=== PATIENT | male | born 1960 | race Caucasian/White ===

== ENCOUNTER 2017-08-31 16:11 | Emergency (ER) | payer OTHER ==
[~2017-08-31] VITALS: Ht 193 cm; Wt 122.5 kg
[~2017-08-31 16:11] MED LIST: Ativan1 MG PO; CEPH500 PO; CODACE30 PO; CYCL10 PO; DOXE2.5 PO; FLUO20 PO; FURO40 PO; HYDACE5; HYDACE5 PO; KETO10 PO; LISI20 PO; NEOPOLHCSU OT; PENVK500 PO; POTCHL20ER PO; Stool Softener100 MG PO; TRAM50 PO; WARF5; WARF5 PO; WARF6; WARF7.5 PO; [UNRECOGNIZED DRUG - REMARK]
[2017-08-31] MEDS ORDERED: ALBU90OI INH (16:49)
[2017-08-31] MEDS ORDERED: Cheratussin AC118 ML PO (16:49)
[2018-04-07] MEDS ORDERED: CYCL10 PO (06:46)
[2018-04-07] MEDS ORDERED: POLYETHYLENE G255 GM (06:46)
[2018-04-07] MEDS ORDERED: Ciloxan5 ML LEFTEAR (06:59)
[2018-04-26] MEDS ORDERED: Norco 5-325 Ta1 EACH PO (06:42)
[2018-04-26] MEDS ORDERED: Prednisone20 MG PO (06:42)
== END 2017-08-31 17:00 | disposition home or self-care (01) ==
LOC: ER 16:11
DX: J40 Bronchitis, not specified as acute or chronic (principal); N18.9 Chronic kidney disease, unspecified; G47.33 Obstructive sleep apnea (adult) (pediatric); F17.210 Nicotine dependence, cigarettes, uncomplicated; Z79.01 Long term (current) use of anticoagulants; Z79.899 Other long term (current) drug therapy
CPT/HCPCS: 99282

== ENCOUNTER 2019-04-30 07:30 | Day surgery (SDC) | payer OTHER ==
[~2019-04-30] VITALS: Ht 193 cm; Wt 112.0 kg
[~2019-04-30 07:30] MED LIST changes: +ALBU90OI INH; +Cheratussin AC118 ML PO; +Ciloxan5 ML LEFTEAR; +DOCU100 PO; +Norco 5-325 Ta1 EACH PO; +POLYETHYLENE G255 GM; +Prednisone20 MG PO; +XARELTO10 MG PO
== END 2019-04-30 09:36 | disposition home or self-care (01) ==
LOC: ORSCSDS 07:30
PROVIDERS: Surgery
PROC: 0DBK8ZX Excision of Ascending Colon, Via Natural or Artificial Opening Endoscopic, Diagnostic (ICD-10-PCS; principal; 2019-04-30 09:15)
DX: Z12.11 Encounter for screening for malignant neoplasm of colon (principal); Z86.010 Personal history of colon polyps; D12.2 Benign neoplasm of ascending colon; G47.33 Obstructive sleep apnea (adult) (pediatric); E66.9 Obesity, unspecified; Z68.32 Body mass index [BMI] 32.0-32.9, adult; Z87.891 Personal history of nicotine dependence; Z79.01 Long term (current) use of anticoagulants; Z79.899 Other long term (current) drug therapy
CPT/HCPCS: 88305; J2704; J7120

== ENCOUNTER 2019-06-06 08:17 | Emergency (ER) | payer OTHER ==
[~2019-06-06] VITALS: Ht 193 cm; Wt 112.0 kg
[2019-06-06 09:30] LABS: BASOPHILS ABSOLUTE AUTO 0.03 K/mm3 (0.00-0.23); BASOPHILS PERCENT AUTO 1 % (0-2); EOSINOPHILS PERCENT AUTO 6 % (0-6); Hematocrit 47.9 % (37.0-53.0); Hemoglobin 15.5 g/dL (13.5-17.5); IMMATURE GRAN ABSOLUTE AUTO 0.01 K/mm3 (0.00-0.10); IMMATURE GRAN PERCENT AUTO 0 % (0-1); LYMPHOCYTES ABSOLUTE AUTO 1.06 K/mm3 (0.84-5.20); LYMPHOCYTES PERCENT AUTO 20 % (21-46); MONOCYTES ABSOLUTE AUTO 0.44 K/mm3 (0.16-1.47); MONOCYTES PERCENT AUTO 8 % (4-13); Mean Corpuscular HGB 31.7 pg (26.0-34.0); Mean Corpuscular HGB Conc 32.4 g/dL (31.5-36.5); Mean Corpuscular Volume 98 fL (80-100); NEUTROPHILS ABSOLUTE AUTO 3.46 K/mm3 (1.96-9.15); NEUTROPHILS PERCENT AUTO 65 % (41-73); Platelet Count 113 K/mm3 (150-400); RDW Coefficient Variation 13.2 % (11.7-14.2); RDW Standard Deviation 48.1 fL (35.1-46.3); Red Blood Cell Count 4.89 M/mm3 (4.30-5.90)
[2019-06-06 09:50] LABS: Albumin, Blood 3.5 g/dL (3.4-5.0); Albumin/Globulin Ratio 0.9 (0.8-1.8); Bilirubin, Total 0.6 mg/dL (0.1-1.0); Calcium, Blood 9.1 mg/dL (8.5-10.1); Creatinine, Blood 1.31 mg/dL (0.60-1.20); Globulin, Blood 3.7 g/dL (2.2-4.0); Potassium, Blood 3.8 mmol/L (3.5-5.5); Total Protein, Blood 7.2 g/dL (6.4-8.2)
[2019-06-06 09:50] LABS: Source, Urine Clean Catch
[2019-06-06 09:54] LABS: Appearance, Urine Clear (Clear); Bilirubin, Urine Neg (Neg); Blood, Urine Neg (Neg); Color, Urine Yellow (P-Yellow); Glucose Qualitative, Urine Neg (Neg); Ketones, Urine 1+ (Neg); Leukocyte Esterase, Urine Neg (Neg); Nitrite, Urine Neg (Neg); Protein, Urine Neg (Neg); Urobilinogen, Urine NORM (Normal)
== END 2019-06-06 10:44 | disposition home or self-care (01) ==
LOC: ER 08:17
PROVIDERS: Physician Assistant
DX: R10.9 Unspecified abdominal pain (principal); F17.210 Nicotine dependence, cigarettes, uncomplicated; Z79.899 Other long term (current) drug therapy
CPT/HCPCS: 36415; 74176; 80053; 81003; 83690; 85025; 99284-25; J7030

== ENCOUNTER 2019-07-05 17:25 | Emergency (ER) | payer OTHER ==
[~2019-07-05] VITALS: Ht 193 cm; Wt 114.8 kg
== END 2019-07-05 18:27 | disposition home or self-care (01) ==
LOC: ER 17:25
DX: I97.621 Postprocedural hematoma of a circulatory system organ or structure following other procedure (principal); F17.210 Nicotine dependence, cigarettes, uncomplicated; Z79.899 Other long term (current) drug therapy
CPT/HCPCS: 99283

== ENCOUNTER 2019-08-05 13:04 | Emergency (ER) | payer OTHER ==
[~2019-08-05] VITALS: Ht 193 cm; Wt 114.8 kg
[2019-08-05] MEDS ORDERED: PRAZ2 PO (13:44)
[2019-08-05] MEDS ORDERED: Flonase 0.05% N16 GM (14:22)
== END 2019-08-05 14:27 | disposition home or self-care (01) ==
LOC: ER 13:04
DX: J11.1 Influenza due to unidentified influenza virus with other respiratory manifestations (principal); R04.0 Epistaxis; Z87.891 Personal history of nicotine dependence
CPT/HCPCS: 71046; 99283-25

== ENCOUNTER 2020-05-15 07:06 | Emergency (ER) | payer OTHER ==
[~2020-05-15] VITALS: Ht 193 cm; Wt 117.0 kg
[~2020-05-15 07:06] MED LIST changes: +Flonase 0.05% N16 GM; +PRAZ2 PO
[2020-05-15 07:52] LABS: BASOPHILS ABSOLUTE AUTO 0.03 K/mm3 (0.00-0.23); BASOPHILS PERCENT AUTO 0 % (0-2); EOSINOPHILS ABSOLUTE AUTO 0.29 K/mm3 (0.00-0.68); EOSINOPHILS PERCENT AUTO 4 % (0-6); Hematocrit 48.9 % (37.0-53.0); Hemoglobin 15.9 g/dL (13.5-17.5); IMMATURE GRAN ABSOLUTE AUTO 0.03 K/mm3 (0.00-0.10); IMMATURE GRAN PERCENT AUTO 0 % (0-1); LYMPHOCYTES ABSOLUTE AUTO 1.22 K/mm3 (0.84-5.20); LYMPHOCYTES PERCENT AUTO 15 % (21-46); MONOCYTES ABSOLUTE AUTO 0.77 K/mm3 (0.16-1.47); MONOCYTES PERCENT AUTO 9 % (4-13); Mean Corpuscular HGB 31.5 pg (26.0-34.0); Mean Corpuscular HGB Conc 32.5 g/dL (31.5-36.5); Mean Corpuscular Volume 97 fL (80-100); Mean Platelet Volume 10.2 fL (9.1-12.4); NEUTROPHILS ABSOLUTE AUTO 6.04 K/mm3 (1.96-9.15); NEUTROPHILS PERCENT AUTO 72 % (41-73); Platelet Count 123 K/mm3 (150-400); RDW Coefficient Variation 13.5 % (11.7-14.2); RDW Standard Deviation 48.4 fL (35.1-46.3); Red Blood Cell Count 5.04 M/mm3 (4.30-5.90); White Blood Cell Count 8.38 K/mm3 (4.00-11.30)
[2020-05-15 08:08] LABS: Alanine Aminotransfer (ALT/SGP 29 U/L (12-78); Albumin, Blood 3.8 g/dL (3.4-5.0); Albumin/Globulin Ratio 0.9 (0.8-1.8); Alk Phos 68 U/L (50-136); Anion Gap 3 mmol/L (6-16); Aspartate Aminotrans (AST/SGOT 35 U/L (12-37); Bilirubin, Total 0.7 mg/dL (0.1-1.0); Blood Urea Nitrogen 27 mg/dL (8-24); Bun/Creatinine Ratio 21.6 (12.0-20.0); CO2, Blood 29 mmol/L (21-32); Calcium, Blood 9.4 mg/dL (8.5-10.1); Chloride, Blood 113 mmol/L (98-108); Creatinine, Blood 1.25 mg/dL (0.60-1.20); Globulin, Blood 4.1 g/dL (2.2-4.0); Glomerular Filtration Rate >60 (60-); Glucose, Blood 101 mg/dL (70-99); Sodium, Blood 145 mmol/L (136-145); Total Protein, Blood 7.9 g/dL (6.4-8.2)
[2020-05-15] MEDS ORDERED: Monodox100 MG PO (09:33)
[2020-05-15] MEDS ORDERED: Mucinex600 MG PO (09:33)
[2020-05-15] MEDS ORDERED: Prednisone20 MG PO (09:33)
== END 2020-05-15 09:55 | disposition home or self-care (01) ==
LOC: ER 07:06
PROVIDERS: Emergency Medicine
DX: J41.1 Mucopurulent chronic bronchitis (principal); Z79.899 Other long term (current) drug therapy; Z79.52 Long term (current) use of systemic steroids; Z79.01 Long term (current) use of anticoagulants; F17.220 Nicotine dependence, chewing tobacco, uncomplicated
CPT/HCPCS: 36415; 71045; 80053; 85025; 99283-25

== ENCOUNTER 2020-08-01 05:33 | Day surgery (SDC) | payer OTHER ==
[~2020-08-01] VITALS: Ht 185.4 cm; Wt 122.2 kg
[~2020-08-01 05:33] MED LIST changes: +Monodox100 MG PO; +Mucinex600 MG PO
[2020-08-01] MEDS ORDERED: TAMS.4ER PO (06:24)
[2020-08-01] MEDS ORDERED: CLOT10 MT (06:25)
[2020-08-01] MEDS ORDERED: CLOT10 (06:26)
[2020-08-01] MEDS ORDERED: ACET500 PO (06:28)
--- NOTE | 2020-08-01 06:52 | NUR ---
Ambulatory in Day Surgery History, Chart, Medications and Allergies reviewed before start of procedure.Patient confirms NPO status and agrees with scheduled surgery. Patient reports completing Chlorhexadine shower X2 prior to admission to hospital.Surgical site prepped with 2% Chlorhexidine cloth wipe. Lungs clear T/O to Auscultation.
--- NOTE | 2020-08-01 17:59 | NUR ---
SHIFT SUMMARY PT VERY PLEASANT & COOPERATIVE. SPINAL WORE OFF AND PT ABLE TO WORK W/ THERAPY. UP IN [place] FOR DINNER. SMALL WALK PRIOR TO BACK TO BED. EATING, DRINKING, VOIDING WELL. DENIES PAIN. BARRY WRAP WNL.
--- NOTE | 2020-08-02 03:51 | NUR ---
SHIFT SUMMARY: PT POD#1 FOR L TKA. BARRY WRAP+GAUZE C/D/I WITH POLAR PACK IN PLACE. PAIN MANAGED WITH TORADOL AND TYLENOL PER EMAR. PT MEDICATED WITH 5MG OXY ONCE, CAUSING HALLUCINATIONS. VS WNL THROUGHOUT NIGHT. BIOX IN PLACE. O2 >93% ON RA. CPAP SET UP PER RT AND PATIENT REQUEST. PT ANDRES PO. DENIES N/V. VOIDING WELL IN URINAL. ABX COMPLETE AND PATIENT SALINE LOCKED. PLAN FOR PHYSICAL THERAPY TODAY AND POSSIBLE DISCHARGE HOME.
[2020-08-02 04:56] LABS: BASOPHILS ABSOLUTE AUTO 0.01 K/mm3 (0.00-0.23); BASOPHILS PERCENT AUTO 0 % (0-2); EOSINOPHILS ABSOLUTE AUTO 0.01 K/mm3 (0.00-0.68); EOSINOPHILS PERCENT AUTO 0 % (0-6); Hematocrit 42.5 % (37.0-53.0); Hemoglobin 13.7 g/dL (13.5-17.5); IMMATURE GRAN ABSOLUTE AUTO 0.08 K/mm3 (0.00-0.10); IMMATURE GRAN PERCENT AUTO 1 % (0-1); LYMPHOCYTES ABSOLUTE AUTO 1.01 K/mm3 (0.84-5.20); LYMPHOCYTES PERCENT AUTO 9 % (21-46); MONOCYTES ABSOLUTE AUTO 1.01 K/mm3 (0.16-1.47); MONOCYTES PERCENT AUTO 9 % (4-13); Mean Corpuscular HGB 31.1 pg (26.0-34.0); Mean Corpuscular HGB Conc 32.2 g/dL (31.5-36.5); Mean Corpuscular Volume 97 fL (80-100); Mean Platelet Volume 10.4 fL (9.1-12.4); NEUTROPHILS ABSOLUTE AUTO 9.83 K/mm3 (1.96-9.15); NEUTROPHILS PERCENT AUTO 82 % (41-73); Platelet Count 144 K/mm3 (150-400); White Blood Cell Count 11.95 K/mm3 (4.00-11.30)
[2020-08-02 05:22] LABS: Calcium, Blood 9.4 mg/dL (8.5-10.1); Creatinine, Blood 1.42 mg/dL (0.60-1.20); Magnesium, Blood 2.2 mg/dL (1.6-2.4); Potassium, Blood 4.1 mmol/L (3.5-5.5)
[2020-08-02] MEDS ORDERED: OXYC5 PO (11:06)
--- NOTE | 2020-08-02 12:30 | NUR ---
DISCHARGE PT CLEARED THERAPY. SCRIPTS, POLAR PACK, & DRSGS GIVEN. AT SIDE FOR INSTRUCTIONS. ESCORTED OUT VIA W.C
== END 2020-08-02 12:42 | disposition home or self-care (01) ==
LOC: ORSCMMR 05:33 → ORD 07:30 → SURS 11:00 → ORSCMMR 11:00 → ORD 11:45 → ORSCMMR 08-02 12:42 → SURS 08-02 12:42
PROVIDERS: Orthopaedic Surgery
PROC: 0SRD0JA Replacement of Left Knee Joint with Synthetic Substitute, Uncemented, Open Approach (ICD-10-PCS; principal; 2020-08-01 07:30)
DX: M17.12 Unilateral primary osteoarthritis, left knee (principal); G47.33 Obstructive sleep apnea (adult) (pediatric); F17.210 Nicotine dependence, cigarettes, uncomplicated; Z86.718 Personal history of other venous thrombosis and embolism; Z79.01 Long term (current) use of anticoagulants; E66.9 Obesity, unspecified; Z68.35 Body mass index [BMI] 35.0-35.9, adult; Z79.899 Other long term (current) drug therapy
CPT/HCPCS: 36415; 73560-LT; 80048; 83735; 85025; 88300; 94660; 94762; 97110; 97110-CQ; 97116; 97116-CQ; 97161; 97530; 97530-CQ; A9270; C1776; J0171; J0690; J0735; J1100; J1170; J1885; J2250; J2405; J2550; J2704; J2765; J2795; J3010; J7120

== ENCOUNTER 2020-12-24 19:27 | Emergency (ER) | payer OTHER ==
[~2020-12-24] VITALS: Ht 185.4 cm; Wt 126.1 kg
[~2020-12-24 19:27] MED LIST changes: +ACET500 PO; +CLOT10; +CLOT10 MT; +OXYC5 PO; +TAMS.4ER PO
== END 2020-12-24 21:00 | disposition home or self-care (01) ==
LOC: ER 19:27
DX: H93.12 Tinnitus, left ear (principal); Z79.899 Other long term (current) drug therapy; Z87.891 Personal history of nicotine dependence; Z79.01 Long term (current) use of anticoagulants
CPT/HCPCS: 99282

== ENCOUNTER 2021-02-18 17:33 | Emergency (ER) | payer OTHER ==
[~2021-02-18] VITALS: Ht 185.4 cm; Wt 90.7 kg
== END 2021-02-18 19:23 | disposition home or self-care (01) ==
LOC: ER 17:33
DX: S90.852A Superficial foreign body, left foot, initial encounter (principal); Z79.899 Other long term (current) drug therapy; Z86.718 Personal history of other venous thrombosis and embolism; Z79.01 Long term (current) use of anticoagulants; W45.8XXA Other foreign body or object entering through skin, initial encounter
CPT/HCPCS: 10120; 99283-25

== ENCOUNTER 2021-04-29 05:39 | Emergency (ER) | payer OTHER ==
[~2021-04-29] VITALS: Ht 193 cm; Wt 130.6 kg
== END 2021-04-29 07:30 | disposition left against medical advice (07) ==
LOC: ER 05:39
DX: Z53.21 Procedure and treatment not carried out due to patient leaving prior to being seen by health care provider (principal)

== ENCOUNTER → 2021-05-16 | Outpatient (CLI) | payer OTHER | LOC: LAB SHORT 07:36 → PLD 07:36 | DX: L60.2 Onychogryphosis (principal); B35.1 Tinea unguium | CPT/HCPCS: 88305; 88312 ==

== ENCOUNTER → 2021-05-23 | Outpatient (CLI) | payer OTHER ==
[2021-05-23 14:49] LABS: CHOL/HDL RATIO 4.3; Cholesterol 189 mg/dL (50-200); HDL Cholesterol 44 mg/dL (>39); LDL/HDL RATIO 2.5; Low Density Lipoprotein Chol 111 mg/dL (0-110); Triglycerides 170 mg/dL (30-160); Very Low Density Lipoprot Chol 34 mg/dL (6-32)
== END | disposition home or self-care (01) ==
LOC: LAB SHORT 09:40
PROVIDERS: Family Medicine
DX: Z12.5 Encounter for screening for malignant neoplasm of prostate (principal); Z13.6 Encounter for screening for cardiovascular disorders
CPT/HCPCS: 80061; G0103

== ENCOUNTER → 2022-04-10 | Outpatient (CLI) | payer OTHER ==
[~2022-04-10] MED LIST changes: +BENZ100A PO; +LIDO700A20 TOP; +LIDOCAINE15 GM TOP
[2022-04-10 15:19] LABS: BASOPHILS ABSOLUTE AUTO 0.03 K/mm3 (0.00-0.23); BASOPHILS PERCENT AUTO 1 % (0-2); EOSINOPHILS ABSOLUTE AUTO 0.28 K/mm3 (0.00-0.68); EOSINOPHILS PERCENT AUTO 6 % (0-6); Hematocrit 46.7 % (37.0-53.0); IMMATURE GRAN ABSOLUTE AUTO 0.01 K/mm3 (0.00-0.10); IMMATURE GRAN PERCENT AUTO 0 % (0-1); LYMPHOCYTES ABSOLUTE AUTO 1.21 K/mm3 (0.84-5.20); LYMPHOCYTES PERCENT AUTO 25 % (21-46); MONOCYTES ABSOLUTE AUTO 0.77 K/mm3 (0.16-1.47); MONOCYTES PERCENT AUTO 16 % (4-13); Mean Corpuscular HGB 32.8 pg (26.0-34.0); Mean Corpuscular HGB Conc 32.1 g/dL (31.5-36.5); Mean Corpuscular Volume 102 fL (80-100); Mean Platelet Volume 10.9 fL (9.1-12.4); NEUTROPHILS ABSOLUTE AUTO 2.49 K/mm3 (1.96-9.15); NEUTROPHILS PERCENT AUTO 52 % (41-73); Platelet Count 142 K/mm3 (150-400); RDW Coefficient Variation 13.3 % (11.7-14.2); RDW Standard Deviation 50.4 fL (35.1-46.3); Red Blood Cell Count 4.57 M/mm3 (4.30-5.90); White Blood Cell Count 4.79 K/mm3 (4.00-11.30)
[2022-04-10 15:53] LABS: C-REACTIVE PROTEIN, EXT RANGE <0.290 mg/dL (0.000-0.300)
[2022-04-10 16:03] LABS: Alanine Aminotransfer (ALT/SGP 32 U/L (12-78); Albumin, Blood 3.9 g/dL (3.4-5.0); Albumin/Globulin Ratio 1.1 (0.8-1.8); Alk Phos 70 U/L (50-136); Anion Gap 4 mmol/L (6-16); Aspartate Aminotrans (AST/SGOT 32 U/L (12-37); Bilirubin, Total 0.4 mg/dL (0.1-1.0); Blood Urea Nitrogen 27 mg/dL (8-24); Bun/Creatinine Ratio 19.4 (12.0-20.0); CO2, Blood 31 mmol/L (21-32); Chloride, Blood 107 mmol/L (98-108); Creatinine, Blood 1.39 mg/dL (0.60-1.20); Free Thyroxine 0.67 ng/dL (0.70-1.60); Globulin, Blood 3.7 g/dL (2.2-4.0); Glomerular Filtration Rate 57 (60-); Glucose, Blood 96 mg/dL (70-99); Potassium, Blood 4.2 mmol/L (3.5-5.5); Sodium, Blood 142 mmol/L (136-145); Total Protein, Blood 7.6 g/dL (6.4-8.2)
== END ==
LOC: LAB 10:35 → LAB SHORT 10:35
PROVIDERS: Family Medicine
DX: R61 Generalized hyperhidrosis (principal)
CPT/HCPCS: 80053; 83880; 84439; 84443; 85025; 85651; 86140

== ENCOUNTER 2024-05-10 04:41 | Emergency (ER) | payer OTHER ==
[~2024-05-10] VITALS: Ht 182.9 cm; Wt 129.3 kg
[2024-05-10 04:45] VITALS: BP 149/85
[2024-05-10] MEDS ORDERED: Ofloxacin 0.3% Otic Soln 5 ML RIGHTEAR ONE (05:00)
== END 2024-05-10 06:14 | disposition home or self-care (01) ==
LOC: ER 04:41
DX: S09.21XA Traumatic rupture of right ear drum, initial encounter (principal); F17.220 Nicotine dependence, chewing tobacco, uncomplicated; X58.XXXA Exposure to other specified factors, initial encounter; Z79.899 Other long term (current) drug therapy; Z79.51 Long term (current) use of inhaled steroids
CPT/HCPCS: 99282; A9270

== ENCOUNTER 2024-06-05 06:06 | Day surgery (SDC) | payer OTHER ==
[2024-06-05] VITALS (8 sets, daily range): BP systolic 92–143; BP diastolic 66–82
[~2024-06-05] VITALS: Ht 193 cm; Wt 128.0 kg
[~2024-06-05 06:06] MED LIST changes: +ALBU90OI; +ATOR40TA PO; +FURO20 PO; +GABA300 PO; +MIRALAX17 GM PO; +POTA8 PO; +TOPROL XL25 MG PO; +Triamcinolone A15 G3
[2024-06-05] MEDS ORDERED: Nitroglycerin 2 MG/20 ML BTL ONE (06:37)
[2024-06-05] MEDS ORDERED: Verapamil HCL 2.5 MG/ML 2ML Injection ONE (06:37)
[2024-06-05] MEDS ORDERED: Heparin Sodium 1000 Units/ML 10ML MDV ONE ×2 (06:37→06:45)
[2024-06-05] MEDS ORDERED: NS 250 ML IV ONE (06:37)
[2024-06-05] MEDS ORDERED: NS 1,000 ML IV ONE ×2 (06:37→06:45)
[2024-06-05] MEDS ORDERED: Aspirin 325 MG Tab ONE (07:10)
[2024-06-05] MEDS ORDERED: FentaNYL Citrate 50 MCG/ML 2 ML Injection ONE (07:18)
[2024-06-05] MEDS ORDERED: Midazolam HCl 1MG / ML 2ML Vial ONE ×2 (07:19→07:20)
--- NOTE | 2024-06-05 08:40 | NUR ---
PATIENT ARRIVED BACK TO RECOVERY ROOM SITTING UPRIGHT IN RECLINER CONVERSING APPROPRIATELY. VSS ON RA. R RADIAL TR BAND SITE FULLY INFLATED. SITE C/D/I SOFT/NONTENDER, NO EVIDENCE OF BLEEDING. PATIENT DENYING ANY PAIN.
--- NOTE | 2024-06-05 09:00 | NUR ---
PATIENT SITTING UPRIGHT IN RECLINER TOLERATING PO INTAKE WELL. R RADIAL TR BAND FULLY INFALTED. SITE C/D/I SOFT/NONTENDER, NO EVIDENCE OF BLEEDING. PATIENT DENYING ANY PAIN. VSS ON RA
[2024-06-05] MEDS ORDERED: Aspir 8181 MG PO (09:15)
[2024-06-05] MEDS ORDERED: Isosorbide Mono30 MG PO (09:16)
--- NOTE | 2024-06-05 09:33 | NUR ---
INITIAL 2 CC OF AIR REMOVED FROM RIGHT RADIAL TR BAND. SITE C/D/I SOFT/NONTENDER, NO EVIDENCE OF BLEEDING. VSS ON RA. PATIENT DENYING ANY PAIN
--- NOTE | 2024-06-05 10:23 | NUR ---
TR band fully deflated at this time. Pt site wnl. Vss, remains upright in recliner with family at bedside.
--- NOTE | 2024-06-05 10:59 | NUR ---
Discharge instructions reviewed in detail. Pt R radial site wnl, no oozing or hematoma at this time. bandaid placed over site along with arm board. IV removed cathter intact. Pt. vss remain stable prior to discharge. Pt able to get self dressed with out difficulty. Pt. to drive pt home and no further questions at this time. all belongings returned to pt prior to departure.
== END 2024-06-05 11:34 | disposition home or self-care (01) ==
LOC: MHTC 06:06
DX: I25.10 Atherosclerotic heart disease of native coronary artery without angina pectoris (principal); I25.5 Ischemic cardiomyopathy; G47.33 Obstructive sleep apnea (adult) (pediatric); N18.9 Chronic kidney disease, unspecified; E78.5 Hyperlipidemia, unspecified; Z79.899 Other long term (current) drug therapy; Z99.89 Dependence on other enabling machines and devices; Z87.891 Personal history of nicotine dependence
CPT/HCPCS: 76937; 85347; 93458; 93571; 99152; 99153; A9270; C1769; C1887; C1894; J1644; J2250; J3010; J7030; J7050; Q9967

== ENCOUNTER 2024-08-18 13:04 | Day surgery (SDC) | payer OTHER ==
[~2024-08-18] VITALS: Ht 185.4 cm; Wt 130.7 kg
[~2024-08-18 13:04] MED LIST changes: +Aspir 8181 MG PO; +Atropine Sulfate 0.1 MG/ML 10ML SYR ONE; +Glycopyrrolate 0.2 MG/ML 1MLVIAL ONE; +Isosorbide Mono30 MG PO; +Lactated Ringer's 1,000 ML IV ONE; +Lidocaine 2% 5 ML SDV ONE; +Lidocaine HCl/Pf 1% 5 ML VIAL ONE; +Methylene Blue 1% 100 MG/10 ML VIAL ONE; +Ondansetron HCl 2 MG / ML 2ML Vial ONE; +ePHEDrine Sulfate 50 MG/ML 1ML Injection ONE
[2024-08-18] MEDS ORDERED: Lidocaine HCl/Pf 1% 5 ML VIAL ONE (13:25)
[2024-08-18] MEDS ORDERED: propofoL 50 ML IV ONE (15:07)
[2024-08-18] MEDS ORDERED: Lactated Ringer's 1,000 ML IV ONE (15:11)
[2024-08-18] MEDS ORDERED: Glycopyrrolate 0.2 MG/ML 1MLVIAL ONE (15:18)
[2024-08-18 16:34] VITALS: BP 117/68
== END 2024-08-18 16:25 | disposition home or self-care (01) ==
LOC: ORSCSDS 13:04
PROVIDERS: Surgery
PROC: 0DBM8ZX Excision of Descending Colon, Via Natural or Artificial Opening Endoscopic, Diagnostic (ICD-10-PCS; principal; 2024-08-18 15:00)
DX: Z12.11 Encounter for screening for malignant neoplasm of colon (principal); Z86.0101 Personal history of adenomatous and serrated colon polyps; D12.4 Benign neoplasm of descending colon; G47.33 Obstructive sleep apnea (adult) (pediatric); I12.9 Hypertensive chronic kidney disease with stage 1 through stage 4 chronic kidney disease, or unspecified chronic kidney disease; N18.9 Chronic kidney disease, unspecified; I25.10 Atherosclerotic heart disease of native coronary artery without angina pectoris; E78.5 Hyperlipidemia, unspecified; E66.01 Morbid (severe) obesity due to excess calories; Z68.38 Body mass index [BMI] 38.0-38.9, adult; Z87.891 Personal history of nicotine dependence; Z79.899 Other long term (current) drug therapy; Z86.711 Personal history of pulmonary embolism; Z79.01 Long term (current) use of anticoagulants
CPT/HCPCS: 88305; J0461; J2003; J2405; J2704; J7120; Q9968

== ENCOUNTER 2025-01-04 08:33 | Day surgery (SDC) | payer OTHER ==
[~2025-01-04] VITALS: Ht 185.4 cm; Wt 126.2 kg
[~2025-01-04 08:33] MED LIST changes: -Atropine Sulfate 0.1 MG/ML 10ML SYR ONE; -Glycopyrrolate 0.2 MG/ML 1MLVIAL ONE; -Lactated Ringer's 1,000 ML IV ONE; +Lidocaine 1%-Epineph 1:100000 20 ML MDV ONE; -Lidocaine 2% 5 ML SDV ONE; +Lidocaine 2%-Epineph 1:100000 20 ML MDV ONE; -Lidocaine HCl/Pf 1% 5 ML VIAL ONE; -Methylene Blue 1% 100 MG/10 ML VIAL ONE; -Ondansetron HCl 2 MG / ML 2ML Vial ONE; -ePHEDrine Sulfate 50 MG/ML 1ML Injection ONE
[2025-01-04] MEDS ORDERED: FentaNYL Citrate 50 MCG/ML 2 ML Injection ONE (08:42)
[2025-01-04] MEDS ORDERED: CeFAZolin Sodium 3,000 MG VIAL ONE (08:51)
[2025-01-04] MEDS ORDERED: LOSA25 PO (09:02)
[2025-01-04] MEDS ORDERED: DAPAGLIFLOZIN10 MG PO (09:03)
[2025-01-04] MEDS ORDERED: Lidocaine 1%-Epineph 1:200000 30 ML SDV XX ONE (10:21)
[2025-01-04] MEDS ORDERED: Ondansetron HCl 2 MG / ML 2ML Vial ONE (10:30)
--- NOTE | 2025-01-04 11:22 | NUR ---
01/04/25 1122 Nataly Hoang +1 EDEMA TO BL LE PT C/O KNEE PAIN(BASELINE). NO PAIN IN OPERATIVE HAND. SCATTERED SCRATCHES AND SCABS. (+) CAP REFILL, PINK R HAND
[2025-01-04 11:48] VITALS: BP 115/74
== END 2025-01-04 12:10 | disposition home or self-care (01) ==
LOC: ORSCSDS 08:33
PROVIDERS: Orthopaedic Surgery
PROC: 01N50ZZ Release Median Nerve, Open Approach (ICD-10-PCS; principal; 2025-01-04 10:00)
DX: G56.01 Carpal tunnel syndrome, right upper limb (principal); Z86.718 Personal history of other venous thrombosis and embolism; Z79.01 Long term (current) use of anticoagulants; G47.33 Obstructive sleep apnea (adult) (pediatric); I25.10 Atherosclerotic heart disease of native coronary artery without angina pectoris; E66.9 Obesity, unspecified; Z68.36 Body mass index [BMI] 36.0-36.9, adult; Z79.899 Other long term (current) drug therapy; Z79.82 Long term (current) use of aspirin; I12.9 Hypertensive chronic kidney disease with stage 1 through stage 4 chronic kidney disease, or unspecified chronic kidney disease; N18.9 Chronic kidney disease, unspecified
CPT/HCPCS: J0690; J2405; J2704; J3010; J7120

== ENCOUNTER 2025-04-28 11:20 | Day surgery (SDC) | payer OTHER | END 2025-04-28 15:13 | disposition home or self-care (01) | LOC: ORSCSDS 11:20 | PROC: 0SBC4ZZ Excision of Right Knee Joint, Percutaneous Endoscopic Approach (ICD-10-PCS; principal; 2025-04-28) | DX: M23.203 Derangement of unspecified medial meniscus due to old tear or injury, right knee (principal); M23.200 Derangement of unspecified lateral meniscus due to old tear or injury, right knee; M94.261 Chondromalacia, right knee; J44.9 Chronic obstructive pulmonary disease, unspecified; Z86.718 Personal history of other venous thrombosis and embolism; Z79.01 Long term (current) use of anticoagulants; Z79.899 Other long term (current) drug therapy; F17.210 Nicotine dependence, cigarettes, uncomplicated; Z86.711 Personal history of pulmonary embolism; I12.9 Hypertensive chronic kidney disease with stage 1 through stage 4 chronic kidney disease, or unspecified chronic kidney disease; N18.9 Chronic kidney disease, unspecified; E78.5 Hyperlipidemia, unspecified; I25.10 Atherosclerotic heart disease of native coronary artery without angina pectoris; E66.9 Obesity, unspecified; Z68.35 Body mass index [BMI] 35.0-35.9, adult ==